=== PATIENT | female | born 1975 | race Caucasian/White ===

== ENCOUNTER 2016-09-11 11:08 | Outpatient (CLI) | payer OTHER | END 2016-09-11 11:09 | disposition home or self-care (01) | DX: D25.0 Submucous leiomyoma of uterus (principal) ==

== ENCOUNTER 2017-09-10 10:00 | Emergency (ER) | payer OTHER ==
[2017-09-10 10:59] LABS: BASOPHILS # (AUTO) 0.1 10^3/uL (0.0-0.1); BASOPHILS % (AUTO) 0.8 %; EOSINOPHILS # (AUTO) 0.2 10^3/uL (0.0-0.7); EOSINOPHILS % (AUTO) 2.5 %; HGB - HEMOGLOBIN 12.7 g/dL (12.0-16.0); LYMPHOCYTES # (AUTO) 1.5 10^3/uL (1.5-3.5); LYMPHOCYTES % (AUTO) 19.1 %; MEAN CORPUSCULAR HEMOGLOBIN 26.7 pg (27.0-31.0); MEAN CORPUSCULAR HGB CONC 33.2 g/dL (32.0-36.0); MEAN CORPUSCULAR VOLUME 80.4 fL (81.0-99.0); MEAN PLATELET VOLUME 8.5 fL (7.9-10.8); MONOCYTES # (AUTO) 0.6 10^3/uL (0.0-1.0); MONOCYTES % (AUTO) 7.4 %; NEUTROPHILS # (AUTO) 5.6 10^3/uL (1.5-6.6); NEUTROPHILS % (AUTO) 70.2 %; PLT - PLATELET COUNT 225 10^3/uL (130-450); RED BLOOD COUNT 4.76 10^6/uL (4.20-5.40); RED CELL DISTRIBUTION WIDTH 14.5 % (12.0-15.0)
[2017-09-10 11:14] LABS: ALBUMIN 4.5 g/dL (3.2-5.5); ALBUMIN/GLOBULIN RATIO 1.6 (1.0-2.2); BILIRUBIN,TOTAL 0.5 mg/dL (0.2-1.0); CALCIUM 9.2 mg/dL (8.5-10.3); CREATININE 0.9 mg/dL (0.4-1.0); TOTAL PROTEIN 7.3 g/dL (6.7-8.2)
[2017-09-10 11:24] LABS: HCG,QUALITATIVE BLOOD NEGATIVE
--- NOTE | 2017-09-10 11:54 | ED Physician Documentation ---
PD HPI ABD PAIN - Stated complaint Stated Complaint: RT SIDE PX - Chief complaint Chief Complaint: Abd Pain - History obtained from History obtained from: Patient, Family - History of Present Illness Timing - onset: How many days ago (4) Timing - duration: Days (4) Timing - details: Gradual onset, Still present Quality: Sharp, Pain Location: RLQ Radiation: Right shoulder Improved by: Laying still Worsened by: Moving, Breathing, Position, Palpation Associated symptoms: Nausea, Vomiting Similar symptoms before: Has not had sx before Recently seen: Not recently seen - Additional information Additional information: 42-year-old previously healthy female has begun to have some pain in the right lower quadrant about 4 days ago she had pain that was not causing any restriction in her activity. Today she has developed worst pain she tried to go to the gym and was unable to perform any of her usual exercises as everything hurt in the right lower quadrant any movement. She has had some nausea and vomiting and decreased appetite today. She was able to eat yesterday and has not had a fever. Review of Systems Constitutional: denies: Fever Eyes: denies: Decreased vision Ears: denies: Ear pain Nose: denies: Congestion Throat: denies: Sore throat Cardiac: denies: Chest pain / pressure, Palpitations Respiratory: denies: Dyspnea, Cough GI: reports: Abdominal Pain, Nausea, Vomiting : denies: Dysuria, Frequency Skin: denies: Rash Musculoskeletal: denies: Neck pain, Back pain Neurologic: denies: Generalized weakness, Focal weakness, Numbness PD PAST MEDICAL HISTORY - Past Medical History Past Medical History: No - Past Surgical History Past Surgical History: Yes - Present Medications Home Medications: Ambulatory Orders Medication Instructions Recorded Confirmed HYDROcod/ACETAM 5/325 [Kemp 5/325] 1 - 2 ea PO Q6H PRN #15 tablet 09/10/17 Ondansetron Odt [Zofran] 4 mg TL Q6H PRN #10 tablet 09/10/17 - Allergies Allergies/Adverse Reactions: Allergies Allergy/AdvReac Type Severity Reaction Status Date / Time No Known Drug Allergies Allergy Verified 09/10/17 10:09 - Social History Does the pt smoke?: No Smoking Status: Never smoker Does the pt drink ETOH?: No Does the pt have substance abuse?: No - Immunizations Immunizations are current?: Yes PD ED PE NORMAL - Vitals Vital signs reviewed: Yes (hypertensive mild ) - General General: Alert and oriented X 3, No acute distress, Well developed/nourished - HEENT HEENT: Atraumatic, PERRL, EOMI - Neck Neck: Supple, no meningeal sign - Cardiac Cardiac: RRR, No murmur - Respiratory Respiratory: No respiratory distress, Clear bilaterally - Abdomen Abdomen: Soft, Other (There is specific and reproducible right lower quadrant tenderness to palpation with garding. There is not RUQ tenderness ) - Back Back: No CVA TTP, No spinal TTP - Derm Derm: Normal color, Warm and dry, No rash - Extremities Extremities: No deformity, No edema - Neuro Eye Opening: Spontaneous Motor: Obeys Commands Verbal: Oriented GCS Score: 15 - Psych Psych: Normal mood, Normal affect Results - Vitals Vitals: Vital Signs - 24 hr 09/10/17 09/10/17 09/10/17 10:00 10:06 10:30 Temperature Heart Rate 68 75 68 Respiratory 16 16 16 Rate Blood Pressure 135/72 H 141/78 H 131/90 H O2 Saturation 97 99 98 09/10/17 09/10/17 09/10/17 11:15 12:25 12:43 Temperature 37.4 C Heart Rate 68 66 Respiratory 16 12 Rate Blood Pressure 161/87 H 122/70 O2 Saturation 99 100 Oxygen O2 Source Room air - Labs Labs: Laboratory Tests 09/10/17 09/10/17 09/10/17 10:43 10:43 10:43 WBC 8.0 RBC 4.76 Hgb 12.7 Hct 38.3 MCV 80.4 L MCH 26.7 L MCHC 33.2 RDW 14.5 Plt Count 225 MPV 8.5 Neut # 5.6 Lymph # 1.5 Trimble # 0.6 Eos # 0.2 Baso # 0.1 Absolute Nucleated RBC 0.01 Nucleated RBC % 0.1 Sodium 134 L Potassium 4.0 Chloride 102 Carbon Dioxide 21 Anion Gap 11.0 BUN 17 Creatinine 0.9 Estimated GFR (MDRD) 69 L Glucose 96 Calcium 9.2 Total Bilirubin 0.5 AST 25 ALT 19 Alkaline Phosphatase 33 L Total Protein 7.3 Albumin 4.5 Globulin 2.8 Albumin/Globulin Ratio 1.6 Lipase 32 Serum HCG, Qual NEGATIVE Urine Color Urine Clarity Urine pH Ur Specific Deer Urine Protein Urine Glucose (UA) Urine Ketones Urine Occult Blood Urine Nitrite Urine Bilirubin Urine Urobilinogen Ur Leukocyte Esterase Ur Microscopic Review Urine Culture Comments 09/10/17 11:35 WBC RBC Hgb Hct MCV MCH MCHC RDW Plt Count MPV Neut # Lymph # Trimble # Eos # Baso # Absolute Nucleated RBC Nucleated RBC % Sodium Potassium Chloride Carbon Dioxide Anion Gap BUN Creatinine Estimated GFR (MDRD) Glucose Calcium Total Bilirubin AST ALT Alkaline Phosphatase Total Protein Albumin Globulin Albumin/Globulin Ratio Lipase Serum HCG, Qual Urine Color YELLOW Urine Clarity CLEAR Urine pH 5.5 Ur Specific Deer <=1.005 Urine Protein NEGATIVE Urine Glucose (UA) NEGATIVE Urine Ketones NEGATIVE Urine Occult Blood NEGATIVE Urine Nitrite NEGATIVE Urine Bilirubin NEGATIVE Urine Urobilinogen 0.2 (NORMAL) Ur Leukocyte Esterase NEGATIVE Ur Microscopic Review NOT INDICATED Urine Culture Comments NOT INDICATED - Rads (name of study) CT abd/pel without Radiology: Prelim report reviewed (Impression: Negative abdomen and pelvis CT. An etiology for right lower quadrant pain is not seen. The appendix is not identified but there are no secondary signs of appendicitis.), EMP read indepedently, See rad report Ultrasound pelvis with transvaginal and Doppler Radiology: Prelim report reviewed (Impression: Stable small leiomyoma. Normal ovaries. Trace fluid free fluid.), EMP read indepedently, See rad report PD MEDICAL DECISION MAKING - ED course Complexity details: reviewed results, re-evaluated patient, considered differential, d/w patient, d/w family ED course: 42-year-old previously healthy female with right lower quadrant tenderness to palpation that is specific and reproducible. CT scan of the abdomen and pelvis is pending. The study does not demonstrate an etiology for this lady's pain and an ultrasound of the pelvis is undertaken to rule out ovarian pathology such as torsion and this study is negative as well. WBC is normal and the chemistries are normal as well. She does work out on a regular basis recently this has started and I believe this is likely an abdominal wall strain and it does behave this way. Pain with movement and palpation. She cannot get a feeling for a specific injury or strain based on the equipment and exercises she is doing. She is given IM toradol and we will provide a short script of narcotic. Departure - Departure Disposition: 01 Home, Self Care Clinical Impression: Strain of abdominal muscle Qualifiers: Encounter type: initial encounter Qualified Code(s): S39.011A - Strain of muscle, fascia and tendon of abdomen, initial encounter Instructions: ED Strain Abdominal Muscle Follow-Up: Vinny Alicea DO [Primary Care Provider] - Prescriptions: HYDROcod/ACETAM 5/325 [Kemp 5/325] 1 - 2 ea PO Q6H PRN #15 tablet PRN Reason: Pain Ondansetron Odt [Zofran] 4 mg TL Q6H PRN #10 tablet PRN Reason: Nausea / Vomiting
[2017-09-10 12:04] LABS: BILIRUBIN,URINE NEGATIVE (NEGATIVE); GLUCOSE, URINE (UA) NEGATIVE (NEGATIVE); KETONES,URINE (UA) NEGATIVE (NEGATIVE); LEUKOCYTE ESTERASE, URINE NEGATIVE (NEGATIVE); NITRITE,URINE NEGATIVE (NEGATIVE); OCCULT BLOOD,URINE NEGATIVE (NEGATIVE); PH,URINE 5.5 PH (5.0-7.5); PROTEIN,URINE NEGATIVE (NEGATIVE); UROBILINOGEN,URINE 0.2 (NORMAL) E.U./dL (NORMAL)
[2017-09-10 12:06] LABS: CLARITY,URINE CLEAR (CLEAR)
--- NOTE | 2017-09-10 12:33 | CT Report ---
EXAM: CT ABDOMEN AND PELVIS EXAM DATE: 09/10/2017 12:15 PM. CLINICAL HISTORY: RLQ pain. COMPARISONS: None. TECHNIQUE: Routine helical CT imaging was performed through the abdomen and pelvis. IV contrast: Non- . Enteric contrast: No. Reconstructions: Coronal and sagittal. In accordance with CT protocol optimization, one or more of the following dose reduction techniques w ere utilized for this exam: automated exposure control, adjustment of mA and/or KV based on patient s ize, or use of iterative reconstructive technique. FINDINGS: Lung Bases: Unremarkable. Liver: 2 cysts are present the largest 2.3 x 1.9 cm. Otherwise negative noncontrast liver. Gallbladder/bile Ducts: Unremarkable by CT. Spleen, pancreas, adrenal Glands, kidneys: Unremarkable for the noncontrast CT scan technique. Small accessory splenule present Peritoneal Cavity/Bowel: Normal. No free fluid, free air or adenopathy. No masses or acute inflammato ry process. The appendix is well visualized and normal. Pelvic Organs: Normal. The bladder and pelvic organs are unremarkable. Vasculature: No aneurysms or other significant abnormality. Bones: No significant abnormality. Other: None. IMPRESSION: Negative abdomen and pelvis CT. An etiology for right lower quadrant pain is not seen. Th e appendix is not identified but there are no secondary signs of appendicitis. [facility] Referring Provider Line: [phone] SITE ID: [id number]
[2017-09-10] MEDS ORDERED: KETOROLAC 60 MG/2 ML VIAL IM STA (14:49)
[2017-09-10] MEDS ORDERED: KETOROLAC 60 MG/2 ML VIAL IVP STA (15:00)
[2017-09-10 15:43] VITALS: BP 108/61
--- NOTE | 2017-09-10 20:53 | Ultrasound Report ---
DATE OF SERVICE: 09/10/2017 PELVIC ULTRASOUND: 09/10/2017 CLINICAL INDICATION: Right lower quadrant pain. Transabdominal pelvic ultrasound performed for global evaluation. Transvaginal pelvic ultrasound performed for detailed evaluation. Real-time scanning with Doppler performed and static images obtained. COMPARISON: CT 09/10/2017, pelvic ultrasound 09/11/2016. The uterus is anteverted, measuring 8.0 x 4.6 x 4.5 cm. The endometrial echo complex measures 11 mm. A 1.1 x 1.0 x 1.0 cm intramural leiomyoma is again noted posteriorly. The right ovary measures 2.1 x 1.9 x 1.9 cm, and appears unremarkable, with normal flow. The left ovary measures 2.5 x 2.4 x 3.2 cm, and demonstrates a small follicle. Normal ovarian flow is seen. Trace free fluid is present. IMPRESSION: No evident etiology for the patient's right lower quadrant pain. TD: 09/10/2017 21:52
== END 2017-09-10 15:44 | disposition home or self-care (01) ==
LOC: ED 10:00
DX: S39.011A Strain of muscle, fascia and tendon of abdomen, initial encounter (principal); X58.XXXA Exposure to other specified factors, initial encounter
CPT/HCPCS: 36415; 74176; 76830; 76856; 80053; 81001; 81003; 83690; 84703; 85025; 87086; 93976; 96374; 99283; 99284

== ENCOUNTER 2018-09-03 10:55 | Emergency (ER) | payer OTHER ==
--- NOTE | 2018-09-03 12:16 | ED Physician Documentation ---
PD HPI BACK INJURY - Stated complaint Stated Complaint: BACK PX - History obtained from History obtained from: Patient - History of Present Illness Location: Other (abrupt pain in lower thoracic area radiating to both sides but not to abd nor to buttocks/legs, while doing jumping jacks in dance class. pain severe and marked with any ROM of the back. No fall nor direct impact. No prior similar symptoms.) Type of injury: Twist Where injury occurred: Other (exercise studio) Timing - onset: Today Timing - details: Abrupt onset, Still present Quality: Pain, Spasm, Sharp Improved by: Rest Worsened by: Moving, Palpating Associated symptoms: No: Fever, Weakness, Numbness, Incontinent of urine Contributing factors: No: Prior back surgery Similar symptoms before: Has not had sx before Recently seen: Not recently seen Review of Systems Constitutional: denies: Fever Nose: denies: Rhinorrhea / runny nose, Congestion Throat: denies: Sore throat Respiratory: denies: Cough GI: denies: Abdominal Pain, Nausea, Vomiting, Diarrhea : denies: Dysuria, Frequency, Incontinent Skin: denies: Rash, Lesions Musculoskeletal: denies: Extremity pain Neurologic: denies: Focal weakness, Numbness, Near syncope PD PAST MEDICAL HISTORY - Past Medical History Cardiovascular: None Respiratory: None Neuro: None Endocrine/Autoimmune: None - Past Surgical History Past Surgical History: Yes - Present Medications Home Medications: Ambulatory Orders Medication Instructions Recorded Confirmed Hydrocodone/Acetaminophen [Hardy 1 each PO Q6H PRN #20 tablet 09/03/18 5-325 Tablet] Methocarbamol [Robaxin] 500 mg PO Q6H PRN #30 tablet 09/03/18 diazePAM [Diazepam] 5 mg PO TID PRN #15 tablet 09/03/18 - Allergies Allergies/Adverse Reactions: Allergies Allergy/AdvReac Type Severity Reaction Status Date / Time No Known Drug Allergies Allergy Verified 09/03/18 11:02 - Social History Does the pt smoke?: No Smoking Status: Never smoker Does the pt drink ETOH?: No Does the pt have substance abuse?: No - Immunizations Immunizations are current?: Yes PD ED PE NORMAL - Vitals Vital signs reviewed: Yes - General General: Alert and oriented X 3, Well developed/nourished, Other (appears very uncomfortable, holding back stiffly and moving guardedly and slowly. ) - HEENT HEENT: Pharynx benign - Neck Neck: Supple, no meningeal sign, No adenopathy, No bruit - Cardiac Cardiac: RRR, No murmur - Respiratory Respiratory: Clear bilaterally - Abdomen Abdomen: Normal bowel sounds, Soft, Non tender, Non distended - Back Back: No CVA TTP, Other (tenderness in paravertebral muscles at lower thoracic area and some tender to percussion at the spine there. No redness nor sores. ) - Derm Derm: Normal color, Warm and dry, No rash - Extremities Extremities: No tenderness to palpate, Normal ROM s pain, No edema, No calf tenderness / cord - Neuro Neuro: Alert and oriented X 3, No motor deficit, No sensory deficit, Normal speech Results - Vitals Vitals: Vital Signs - 24 hr 09/03/18 09/03/18 10:59 14:09 Temperature 36.4 C L Heart Rate 69 58 L Respiratory 20 Rate Blood Pressure 123/64 115/80 O2 Saturation 100 100 Oxygen O2 Source Room air - Rads (name of study) thoracic spine CT Radiology: Prelim report reviewed (visible lungs are good. The spine shows small dis protrusion at T11/12 level with minimal impact of thecal sac.) PD MEDICAL DECISION MAKING - ED course Complexity details: reviewed results, re-evaluated patient (improved with PO meds (she declined IV nor IM).), considered differential (was not significant mechanism, but consider just marked muscle spasm and strain with incidental disc finding, or the pain could be that she herniated the disc the mild amount abruptly and that is what was causing the pain. Would treat with pain meds, physical treatments (massage or chiropractic for now), less activity vigorous nor bouncing. Recheck PMD in a week. ), d/w patient Departure - Departure Disposition: 01 Home, Self Care Clinical Impression: Acute thoracic back pain Qualifiers: Back pain laterality: midline Qualified Code(s): M54.6 - Pain in thoracic spine Condition: Stable Record reviewed to determine appropriate education?: Yes Instructions: ED Acute Pain [facility] Follow-Up: Vinny Alicea DO [Primary Care Provider] - Prescriptions: diazePAM [Diazepam] 5 mg PO TID PRN #15 tablet PRN Reason: Spasms Hydrocodone/Acetaminophen [Hardy 5-325 Tablet] 1 each PO Q6H PRN #20 tablet PRN Reason: Pain Methocarbamol [Robaxin] 500 mg PO Q6H PRN #30 tablet PRN Reason: Spasms Comments: Bending and stretching are good. Avoid bouncing or jarring type exercises for a week or 2. There is a mild disc protrusion in the lower thoracic area where your pain is. This might represent the cause of pain in which case he would want to have gentle range of motion or impact to it and give it 2-3 weeks to see if it heals. Alternatively some of the disc findings are incidental in the pain is just muscular and ligaments in which case it could end up getting better more like a week or so. Use some ibuprofen 400-600 mg twice daily. Diazepam muscle relaxant initially for spasms and hydrocodone for pain. He can decrease to Tylenol for pain and Robaxin muscle relaxant as you are improving. Follow-up with your primary care in about a week, call for an appointment. Physical therapy such as massage and chiropractic are okay. Discharge Date/Time: 09/03/18 15:40
[2018-09-03] MEDS ORDERED: HYDROcod/ACETAM 5/325 MG TABLET PO STA ×2 (12:37→14:04)
[2018-09-03] MEDS ORDERED: NAPROXEN 250 MG TABLET PO STA (12:37)
[2018-09-03] MEDS ORDERED: diazePAM 5 MG TABLET PO STA (12:37)
[2018-09-03] MEDS ORDERED: ONDANSETRON ODT 4 MG TABLET TL STA (12:51)
--- NOTE | 2018-09-03 13:35 | CT Report ---
Reason: onset lower thoracic pain while exercising Procedure Date: 09/03/2018 Accession Number: [id number] / [id number] Procedure: CT - Thoracic Spine W/O CPT Code: FULL RESULT: EXAM: CT THORACIC SPINE WITHOUT CONTRAST EXAM DATE: 09/03/2018 01:08 PM. CLINICAL HISTORY: Onset lower thoracic pain while exercising. COMPARISONS: None. TECHNIQUE: Thin-section axial images were acquired of the thoracic spine from C7 to L1 without contrast. Post-processing: Coronal and sagittal reformats. Other: None. In accordance with CT protocol optimization, one or more of the following dose reduction techniques were utilized for this exam: automated exposure control, adjustment of mA and/or KV based on patient size, or use of iterative reconstructive technique. FINDINGS: Alignment: No scoliosis or spondylolisthesis. Bones: No acute fracture. No bone lesion. Disk Levels/Facets: There is a small central disk bulge at T11-T12 which mildly indents the ventral thecal sac but does not cause significant spinal canal or foraminal stenosis. Otherwise unremarkable. Musculature: Unremarkable. Other: None. IMPRESSION: No acute fracture. Small disk bulge at T11-T12. [facility]
[2018-09-03 14:12] VITALS: BP 115/80
== END 2018-09-03 15:40 | disposition home or self-care (01) ==
LOC: ED 10:55
DX: M54.6 Pain in thoracic spine (principal)
CPT/HCPCS: 72128; 99283; A9270; Q0162

== ENCOUNTER 2019-06-12 09:08 | Outpatient (CLI) | payer OTHER ==
--- NOTE | 2019-06-12 13:55 | MRI Report ---
Reason: SCIATICA Procedure Date: 06/12/2019 Accession Number: [id number] / [id number] Procedure: MRI - Lumbar Spine W/O CPT Code: Final Report FULL RESULT: EXAM: MRI LUMBAR SPINE WITHOUT CONTRAST EXAM DATE: 06/12/2019 10:50 AM. CLINICAL HISTORY: SCIATICA. COMPARISON: None. TECHNIQUE: Multiplanar, multisequence T1-weighted and fluid-sensitive sequences of the lumbar spine from T12 to S1 without contrast. Other: None. FINDINGS: Spinal Canal: The conus terminates at L1. The conus medullaris and cauda equina are unremarkable. Alignment: No scoliosis or spondylolisthesis. Bone Marrow: Five mxo-[id number] lumbar vertebral bodies are assumed. No gross fractures or bone lesions. No bone marrow replacement. Disk Levels/Facets: T12-L1: Unremarkable. L1-L2: Unremarkable. L2-L3: Unremarkable. L3-L4: Unremarkable. L4-L5: Unremarkable. L5-S1: Unremarkable. Musculature: Normal. No edema or fatty atrophy. Other: The partially visualized retroperitoneum is unremarkable. IMPRESSION: Unremarkable lumbar spine MRI. Comment: The following findings are so common in adults without low back pain that while we report their presence, they must be interpreted with caution and in the context of the clinical situation. (Reference Jarvik et al, Spine 2001) Prevalence of findings in patients without low back pain: Disk degeneration (any evidence): 92% Disk desiccation/T2 signal loss: 83% Disk height loss: 56% Disk bulge: 64% Disk protrusion: 32% Annular tear/high intensity zone: 38% [facility]
== END 2019-06-12 09:09 | disposition home or self-care (01) ==
LOC: DI 09:08
PROVIDERS: ATTEND Family Medicine
DX: M54.30 Sciatica, unspecified side (principal)
CPT/HCPCS: 72148